=== PATIENT | female | born 1955 | race Two or more races ===

== ENCOUNTER 2017-02-18 12:07 | Inpatient (IN) | payer OTHER ==
[2017-02-18 14:17] VITALS: BMI 26.5
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
[2017-02-18] MEDS ORDERED: guaiFENesin/D-METHORPHAN HB 10 ML UNIT-DOSE CUPS PO PRN (16:23)
[2017-02-18] MEDS ORDERED: MAGNESIUM HYDROX 2400MG/30ML ORAL SUSPENSION 30 ML CUP PO PRN (16:23)
[2017-02-18] MEDS ORDERED: ACETAMINOPHEN 325 MG TABLET (FP) PO PRN (16:23)
[2017-02-18] MEDS ORDERED: hydrOXYzine PAMOATE 50 MG CAPSULE (FP) PO PRN (16:23)
[2017-02-18] MEDS ORDERED: NICOTINE POLACRILEX 4 MG GUM BC PRN (16:23)
[2017-02-18] MEDS ORDERED: LOPERAMIDE HCL 2 MG CAPSULE PO PRN (16:23)
[2017-02-18] MEDS ORDERED: IBUPROFEN 400 MG TABLET (FP) PO PRN (16:23)
[2017-02-18] MEDS ORDERED: MAG HYDROX/AL HYDROX/SIMETH 30 ML UNIT-DOSE CUP PO PRN (16:23)
[2017-02-18] MEDS ORDERED: MENTHOL/PHENOL 1 EACH UD MM PRN (16:23)
[2017-02-18] MEDS ORDERED: diphenhydrAMINE HCL 50 MG CAPSULE PO PRN (16:23)
[2017-02-18] MEDS ORDERED: MAGNESIUM CITRATE 300 ML BOTTLE PO PRN (16:23)
[2017-02-18] MEDS ORDERED: chlordiazePOXIDE HCL 25 MG CAPSULE PO PRN (16:23)
[2017-02-18] MEDS ORDERED: P-EPHED 60MG/TRIPROLIDI 2.5MG TABLET PO PRN (16:23)
[2017-02-18] MEDS ORDERED: ALBUTEROL SO4 6.7 GM HFA INHALER IH PRN (16:27)
[2017-02-18] MEDS ORDERED: chlordiazePOXIDE HCL 25 MG CAPSULE PO ONE (17:45)
[2017-02-18] MEDS: INSULIN (NOVOLOG) ASPART 100 UNITS/ML 10ML VIAL SQ SCH (17:58)
[2017-02-18] MEDS ORDERED: INSULIN (NOVOLOG) ASPART 100 UNITS/ML 10ML VIAL ONE (18:01)
[2017-02-18] MEDS: metFORMIN HCL 500 MG TABLET (FP) PO SCH (18:20)
[2017-02-18] MEDS: ATORVASTATIN CA 20 MG TABLET (FP) PO SCH (22:26)
[2017-02-18] MEDS: THIAMINE HCL 100 MG TABLET (FP) PO SCH (22:26)
[2017-02-18] MEDS: INSULIN DETEMIR 100 UNITS/ML MDV SQ SCH (22:26)
[2017-02-18] MEDS: chlordiazePOXIDE HCL 25 MG CAPSULE PO SCH (22:26)
[2017-02-19] MEDS: metFORMIN HCL 500 MG TABLET (FP) PO SCH ×2 (07:39→16:50)
[2017-02-19] MEDS: chlordiazePOXIDE HCL 25 MG CAPSULE PO SCH ×4 (07:39→22:52)
[2017-02-19] MEDS: sitaGLIPtin PHOSPHATE 100 MG TABLET (FP) PO SCH (07:39)
[2017-02-19] MEDS: INSULIN (NOVOLOG) ASPART 100 UNITS/ML 10ML VIAL SQ SCH ×3 (08:13→16:50)
[2017-02-19] MEDS ORDERED: INSULIN (NOVOLOG) ASPART 100 UNITS/ML 10ML VIAL ONE ×2 (08:22→12:16)
[2017-02-19 10:06] LABS: MCH 28.2 pg (25.7-33.7); MEAN CELL VOLUME 85.6 fl (80-96); PLATELET COUNT 211 K/MM3 (134-434); RDW 13.1 % (11.6-15.6); WHITE BLOOD COUNT 5.8 K/mm3 (4.0-10.0)
[2017-02-19 10:52] LABS: ALBUMIN 3.8 g/dl (3.4-5.0); BILIRUBIN,TOTAL 0.4 mg/dL (0.2-1.0); CALCIUM 9.3 mg/dL (8.5-10.1); COCKROFT - GAULT 49.4275; CREATININE 1.3 mg/dL (0.55-1.02); TOT PROT 7.7 g/dl (6.4-8.2)
[2017-02-19] MEDS: ENALAPRIL MALEATE 10 MG TABLET (FP) PO SCH ×2 (10:55→11:03)
[2017-02-19] MEDS: PRENATAL VITAMINS W/ FOLIC ACID TABLET (FP) PO SCH (10:55)
[2017-02-19] MEDS: NICOTINE 21 MG/24 HOURS TOPICAL PATCH TD SCH (11:00)
--- NOTE | 2017-02-19 14:45 | PN ---
S CIWA - CIWA Score Nausea/Vomitin Muscle Tremors: 4-Moderate,w/Arms Extend Anxiety: 3 Agitation: 2 Paroxysmal Sweats: 3 Orientation: 2-Disoriented Date<2 days Tacttile Disturbances: 3-Moderate Itch/Numb/Burn Auditory Disturbances: 0-None Visual Disturbances: 0-None Headache: 0-None Present CIWA-Ar Total Score: 19 BHS Progress Note (SOAP) Subjective: Interrupted sleep, Tremors,Fatigue, Body aches. Objective: PT. A & O X 2 (DISORIENTED ABOUT DAY/ DATE). 02/19/17 14:44 Vital Signs Temperature 98.1 F 02/19/17 14:14 Pulse Rate 85 02/19/17 14:14 Respiratory Rate 16 02/19/17 14:14 Blood Pressure 96/60 02/19/17 14:14 O2 Sat by Pulse Oximetry (%) Laboratory Last Values WBC 5.8 K/mm3 (4.0-10.0) 02/19/17 06:00 RBC 4.83 M/mm3 (3.60-5.2) 02/19/17 06:00 Hgb 13.6 GM/dL (10.7-15.3) 02/19/17 06:00 Hct 41.3 % (32.4-45.2) 02/19/17 06:00 MCV 85.6 fl (80-96) 02/19/17 06:00 MCHC 33.0 g/dl (32.0-36.0) 02/19/17 06:00 RDW 13.1 % (11.6-15.6) 02/19/17 06:00 Plt Count 211 K/MM3 (134-434) 02/19/17 06:00 MPV 11.0 fl (7.5-11.1) D 02/19/17 06:00 Sodium 138 mmol/L (136-145) 02/19/17 06:00 Potassium 4.6 mmol/L (3.5-5.1) D 02/19/17 06:00 Chloride 99 mmol/L (98-107) 02/19/17 06:00 Carbon Dioxide 28 mmol/L (21-32) 02/19/17 06:00 Anion Gap 11 (8-16) 02/19/17 06:00 BUN 22 mg/dL (7-18) H 02/19/17 06:00 Creatinine 1.3 mg/dL (0.55-1.02) H D 02/19/17 06:00 Creat Clearance w eGFR 41.78 (>60) 02/19/17 06:00 POC Glucometer 267 UNITS (()) 02/19/17 12:07 Random Glucose 294 mg/dL (74-106) H D 02/19/17 06:00 Calcium 9.3 mg/dL (8.5-10.1) 02/19/17 06:00 Total Bilirubin 0.4 mg/dL (0.2-1.0) D 02/19/17 06:00 AST 12 U/L (15-37) L 02/19/17 06:00 ALT 30 U/L (12-78) 02/19/17 06:00 Alkaline Phosphatase 186 U/L (45-117) H D 02/19/17 06:00 Total Protein 7.7 g/dl (6.4-8.2) 02/19/17 06:00 Albumin 3.8 g/dl (3.4-5.0) 02/19/17 06:00 LABS NOTED. Assessment: 02/19/17 14:45 WITHDRAWAL SYMPTOMS. Plan: CONTINUE DETOX. ADVISED PATIENT TO FOLLOW-UP WITH RECRUIT INSTRUCTOR / REHAB MEDICAL PROVIDER AFTER DISCHARGE FROM DETOX FOR GENERAL MEDICAL ASSESSMENT AND FOR ABNORMAL ADMISSION LAB VALUES.
--- NOTE | 2017-02-19 16:16 | EKG ---
Test Reason : Blood Pressure : / mmHG Vent. Rate : 088 BPM Atrial Rate : 088 BPM P-R Int : 162 ms QRS Dur : 088 ms QT Int : 342 ms P-R-T Axes : 039 037 029 degrees QTc Int : 413 ms NORMAL SINUS RHYTHM NORMAL ECG NO PREVIOUS ECGS AVAILABLE Confirmed by NIVIA GARCIA MD ([id number]) on 02/19/2017 4:16:18 PM Referred By: Gabo Ryder Confirmed By:NIVIA GARCIA MD
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
[2017-02-19] MEDS ORDERED: QUEtiapine FUMARATE 50 MG TABLET PO SCH (22:00)
[2017-02-19] MEDS: ATORVASTATIN CA 20 MG TABLET (FP) PO SCH (22:51)
[2017-02-19] MEDS: THIAMINE HCL 100 MG TABLET (FP) PO SCH (22:51)
[2017-02-19] MEDS: INSULIN DETEMIR 100 UNITS/ML MDV SQ SCH (22:52)
[2017-02-20] MEDS ORDERED: INSULIN (NOVOLOG) ASPART 100 UNITS/ML 10ML VIAL ONE ×2 (06:57→11:57)
[2017-02-20] MEDS: metFORMIN HCL 500 MG TABLET (FP) PO SCH (07:02)
[2017-02-20] MEDS: sitaGLIPtin PHOSPHATE 100 MG TABLET (FP) PO SCH (07:02)
[2017-02-20] MEDS: INSULIN (NOVOLOG) ASPART 100 UNITS/ML 10ML VIAL SQ SCH ×2 (07:03→11:59)
[2017-02-20] MEDS: chlordiazePOXIDE HCL 25 MG CAPSULE PO SCH ×2 (07:05→11:41)
[2017-02-20 10:48] VITALS: PULSE 94
[2017-02-20] MEDS: PRENATAL VITAMINS W/ FOLIC ACID TABLET (FP) PO SCH (11:41)
[2017-02-20] MEDS: NICOTINE 21 MG/24 HOURS TOPICAL PATCH TD SCH (11:41)
[2017-02-20] MEDS: ENALAPRIL MALEATE 10 MG TABLET (FP) PO SCH (11:42)
[2017-02-20 13:52] VITALS: BP 107/66; TEMP 98.2
--- NOTE | 2017-02-20 14:39 | PN ---
S CIWA - CIWA Score Nausea/Vomitin Muscle Tremors: 4-Moderate,w/Arms Extend Anxiety: 4-Mod. Anxious/Guarded Agitation: 2 Paroxysmal Sweats: No Perspiration Orientation: 0-Oriented Tacttile Disturbances: 1-Very Mild Itch/Numbness Auditory Disturbances: 0-None Visual Disturbances: 0-None Headache: 3-Moderate CIWA-Ar Total Score: 17 BHS Progress Note (SOAP) Subjective: Anxious, sweating, interrupted sleep, nausea Objective: 02/20/17 14:32 Last Vital Signs Temp Pulse Resp BP Pulse Ox 98.2 F 94 H 16 107/66 02/20/17 13:51 02/20/17 13:51 02/20/17 13:51 02/20/17 13:51 Laboratory Tests 02/18/17 02/19/17 02/19/17 21:35 06:00 06:00 WBC 5.8 RBC 4.83 Hgb 13.6 Hct 41.3 MCV 85.6 MCHC 33.0 RDW 13.1 Plt Count 211 MPV 11.0 D Sodium 138 Potassium 4.6 D Chloride 99 Carbon Dioxide 28 Anion Gap 11 BUN 22 H Creatinine 1.3 H D Creat Clearance w eGFR 41.78 POC Glucometer 246 Random Glucose 294 H D Calcium 9.3 Total Bilirubin 0.4 D AST 12 L ALT 30 Alkaline Phosphatase 186 H D Total Protein 7.7 Albumin 3.8 RPR Titer 02/19/17 02/19/17 02/19/17 06:00 07:22 12:07 WBC RBC Hgb Hct MCV MCHC RDW Plt Count MPV Sodium Potassium Chloride Carbon Dioxide Anion Gap BUN Creatinine Creat Clearance w eGFR POC Glucometer 349 267 Random Glucose Calcium Total Bilirubin AST ALT Alkaline Phosphatase Total Protein Albumin RPR Titer Nonreactive 02/19/17 02/19/17 02/20/17 16:25 22:56 06:30 WBC RBC Hgb Hct MCV MCHC RDW Plt Count MPV Sodium Potassium Chloride Carbon Dioxide Anion Gap BUN Creatinine Creat Clearance w eGFR POC Glucometer 236 401 208 Random Glucose Calcium Total Bilirubin AST ALT Alkaline Phosphatase Total Protein Albumin RPR Titer 02/20/17 11:53 WBC RBC Hgb Hct MCV MCHC RDW Plt Count MPV Sodium Potassium Chloride Carbon Dioxide Anion Gap BUN Creatinine Creat Clearance w eGFR POC Glucometer 182 Random Glucose Calcium Total Bilirubin AST ALT Alkaline Phosphatase Total Protein Albumin RPR Titer Labs noted: serum creatinine 1.3, GFR 41.78, BUN 22 Assessment: 02/20/17 14:34 Withdrawal symptoms Noted with RADHA secondary to dehydration Plan: Continue detox RADHA secondary to dehydration: encouraged to drink lots of water, provide water pitcher to patient, repeat BMP
--- NOTE | 2017-02-20 16:49 | DS ---
[facility] Detox Discharge Summary Admission Date: 02/18/17 Discharge Date: 02/20/17 - History Present History: Alcohol Dependence Pertinent Past History: Asthma HTN Anemia DMT2 - Physical Exam Results Vital Signs: Vital Signs Temperature 98.2 F 02/20/17 13:51 Pulse Rate 94 H 02/20/17 13:51 Respiratory Rate 16 02/20/17 13:51 Blood Pressure 107/66 02/20/17 13:51 O2 Sat by Pulse Oximetry (%) Pertinent Admission Physical Exam Findings: Withdrawal symptoms - Medication Discharge Medications: Ambulatory Orders Albuterol Sulfate [Ventolin -] 2 mg PO Q4H PRN 11/08/12 Esomeprazole Mag Trihydrate [Nexium] 40 mg PO DAILY 11/08/12 Insulin Glargine,Hum.rec.anlog [Lantus Solostar PEN -] 35 units SQ HS 11/08/12 Metformin HCl [Glucophage] 1,000 mg PO BID 11/08/12 Quetiapine Fumarate [Seroquel -] 100 mg PO HS 11/08/12 Sitagliptin Phosphate [Januvia] 100 mg PO DAILY 11/08/12 Enalapril Maleate [Vasotec -] 10 mg PO DAILY #0 tablet 03/16/13 Atorvastatin Ca [Lipitor] 20 mg PO HS 02/18/17 Zolpidem Tartrate [Ambien] 10 mg PO HS 02/18/17 - Diagnosis (1) Alcohol dependence with uncomplicated withdrawal Status: Acute (2) Cigarette nicotine dependence Status: Acute Qualifiers: Substance use status: uncomplicated Qualified Code(s): F17.210 - Nicotine dependence, cigarettes, uncomplicated (3) Asthma Status: Chronic (4) DM Diabetes mellitus type 2 Status: Chronic (5) Essential hypertension Status: Chronic - AMA Did Patient Leave Against Medical Advice: Yes
[2017-02-20] MEDS ORDERED: chlordiazePOXIDE 5 MG CAPSULE PO SCH (23:00)
[2017-02-21] MEDS ORDERED: chlordiazePOXIDE HCL 10 MG CAPSULE PO SCH (23:00)
== END 2017-02-20 15:38 | disposition left against medical advice (07) | DRG 770 ==
LOC: YASAS 12:07 → Y6N 16:41
PROVIDERS: ADMIT Internal Medicine; ATTEND Internal Medicine
PROC: HZ2ZZZZ Detoxification Services for Substance Abuse Treatment (ICD-10-PCS; principal; 2017-02-20)
DX: F10.230 Alcohol dependence with withdrawal, uncomplicated (principal); F14.20 Cocaine dependence, uncomplicated; F17.210 Nicotine dependence, cigarettes, uncomplicated; F19.24 Other psychoactive substance dependence with psychoactive substance-induced mood disorder; I10 Essential (primary) hypertension; E11.9 Type 2 diabetes mellitus without complications; Z79.84 Long term (current) use of oral hypoglycemic drugs; J45.909 Unspecified asthma, uncomplicated; K21.9 Gastro-esophageal reflux disease without esophagitis; G47.00 Insomnia, unspecified; R01.1 Cardiac murmur, unspecified
CPT/HCPCS: 36415; 80053; 85027; 86593; 93005; 93010

== ENCOUNTER 2018-05-15 17:11 | Inpatient (IN) | payer OTHER ==
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
[2018-05-15] MEDS ORDERED: MELATONIN 5 MG TABLETS PO PRN (22:00)
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
[2018-05-15] MEDS ORDERED: ALBUTEROL SO4 2 MG TABLET PO PRN (22:20)
[2018-05-15] MEDS ORDERED: MAGNESIUM HYDROX 2400MG/30ML ORAL SUSPENSION 30 ML CUP PO PRN (22:21)
[2018-05-15] MEDS ORDERED: ACETAMINOPHEN 325 MG TABLET (FP) PO PRN (22:21)
[2018-05-15] MEDS ORDERED: guaiFENesin/D-METHORPHAN HB 10 ML UNIT-DOSE CUPS PO PRN (22:21)
[2018-05-15] MEDS ORDERED: MAG HYDROX/AL HYDROX/SIMETH 30 ML UNIT-DOSE CUP PO PRN (22:21)
[2018-05-15] MEDS ORDERED: MAGNESIUM CITRATE 300 ML BOTTLE PO PRN (22:21)
[2018-05-15] MEDS ORDERED: P-EPHED 60MG/TRIPROLIDI 2.5MG TABLET PO PRN (22:21)
[2018-05-15] MEDS ORDERED: hydrOXYzine PAMOATE 50 MG CAPSULE (FP) PO PRN (22:21)
[2018-05-15] MEDS ORDERED: IBUPROFEN 400 MG TABLET (FP) PO PRN (22:21)
[2018-05-15] MEDS ORDERED: LOPERAMIDE HCL 2 MG CAPSULE PO PRN (22:21)
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
[2018-05-16] MEDS: ENALAPRIL MALEATE 10 MG TABLET (FP) PO SCH (10:20)
[2018-05-16] MEDS: NICOTINE 21 MG/24 HOURS TOPICAL PATCH TD SCH (10:21)
[2018-05-16] MEDS: sitaGLIPtin PHOSPHATE 50 MG TABLET PO SCH (10:21)
[2018-05-16 10:27] LABS: HEMATOCRIT 35.9 % (32.4-45.2); HEMOGLOBIN 11.9 GM/dL (10.7-15.3); MCH 28.2 pg (25.7-33.7); MCHC 33.2 g/dl (32.0-36.0); MEAN CELL VOLUME 84.8 fl (80-96); MEAN PLT VOLUME 9.6 fl (7.5-11.1); PLATELET COUNT 210 K/MM3 (134-434); RBC 4.24 M/mm3 (3.60-5.2); RDW 13.6 % (11.6-15.6); WHITE BLOOD COUNT 5.1 K/mm3 (4.0-10.0)
[2018-05-16 10:36] LABS: CHLORIDE 103 mmol/L (98-107); POTASSIUM 4.2 mmol/L (3.5-5.1); SODIUM 136 mmol/L (136-145)
[2018-05-16 10:48] LABS: ALBUMIN 3.4 g/dl (3.4-5.0); ALK PHOS 126 U/L (45-117); ANION GAP 9 (8-16); BILIRUBIN,TOTAL 0.3 mg/dL (0.2-1.0); BLOOD UREA NITROGEN 33 mg/dL (7-18); CALCIUM 8.6 mg/dL (8.5-10.1); CO2 24 mmol/L (21-32); CREATININE 1.5 mg/dL (0.55-1.02); SGOT/AST 13 U/L (15-37); SGPT/ALT 20 U/L (12-78); TOT PROT 7.1 g/dl (6.4-8.2)
[2018-05-16] MEDS: PRENATAL VITAMINS W/ FOLIC ACID TABLET (FP) PO SCH (11:20)
[2018-05-16] MEDS: NICOTINE POLACRILEX 4 MG GUM BC PRN ×3 (11:45→21:49)
[2018-05-16 12:57] LABS: GLUCOSE,RANDOM 310 mg/dL (74-106)
--- NOTE | 2018-05-16 13:09 | EKG ---
Test Reason : Blood Pressure : / mmHG Vent. Rate : 085 BPM Atrial Rate : 085 BPM P-R Int : 164 ms QRS Dur : 104 ms QT Int : 368 ms P-R-T Axes : 044 028 049 degrees QTc Int : 437 ms NORMAL SINUS RHYTHM POSSIBLE LEFT ATRIAL ENLARGEMENT BORDERLINE ECG WHEN COMPARED WITH ECG OF 18-FEB-2017 16:44, NO SIGNIFICANT CHANGE WAS FOUND Confirmed by MD MIR, CHARLIE ([id number]) on 05/16/2018 1:09:21 PM Referred By: Confirmed By:CHARLIE HESTER MD
--- NOTE | 2018-05-16 14:08 | PN ---
[facility] Progress Note Note: Patient was approached twice for interview and declined. The counselor spinning supervisor asked her to see procedure writer as well with same result. She said:" I don't feel well. I'm withdrawing. I came for detox and I was admitted here."
--- NOTE | 2018-05-16 15:04 | PN ---
[facility] Progress Note Note: Vital Signs Temperature 98.1 F 05/16/18 09:00 Pulse Rate 87 05/16/18 09:00 Respiratory Rate 16 05/16/18 09:00 Blood Pressure 132/70 05/16/18 09:00 O2 Sat by Pulse Oximetry (%) Laboratory Last Values WBC 5.1 K/mm3 (4.0-10.0) 05/15/18 07:26 RBC 4.24 M/mm3 (3.60-5.2) 05/15/18 07:26 Hgb 11.9 GM/dL (10.7-15.3) 05/15/18 07:26 Hct 35.9 % (32.4-45.2) 05/15/18 07:26 MCV 84.8 fl (80-96) 05/15/18 07:26 MCH 28.2 pg (25.7-33.7) 05/15/18 07:26 MCHC 33.2 g/dl (32.0-36.0) 05/15/18 07:26 RDW 13.6 % (11.6-15.6) 05/15/18 07:26 Plt Count 210 K/MM3 (134-434) 05/15/18 07:26 MPV 9.6 fl (7.5-11.1) D 05/15/18 07:26 Sodium 136 mmol/L (136-145) 05/15/18 07:26 Potassium 4.2 mmol/L (3.5-5.1) 05/15/18 07:26 Chloride 103 mmol/L (98-107) 05/15/18 07:26 Carbon Dioxide 24 mmol/L (21-32) 05/15/18 07:26 Anion Gap 9 (8-16) 05/15/18 07:26 BUN 33 mg/dL (7-18) H 05/15/18 07:26 Creatinine 1.5 mg/dL (0.55-1.02) H 05/15/18 07:26 Creat Clearance w eGFR 35.30 (>60) 05/15/18 07:26 POC Glucometer 316 UNITS (80-120) 05/16/18 06:10 Random Glucose 310 mg/dL (74-106) H* 05/15/18 07:26 Calcium 8.6 mg/dL (8.5-10.1) 05/15/18 07:26 Total Bilirubin 0.3 mg/dL (0.2-1.0) 05/15/18 07: AST 13 U/L (15-37) L 05/15/18 07: ALT 20 U/L (12-78) 05/15/18 07: Alkaline Phosphatase 126 U/L (45-117) H 05/15/18 07: Total Protein 7.1 g/dl (6.4-8.2) 05/15/18 07: Albumin 3.4 g/dl (3.4-5.0) 05/15/18 07:26 RPR Titer Nonreactive (NONREACTIVE) 05/15/18 07:26 Patient reports diarrhea and not feeling well. Patient very irritable. Patient AOX3 no distress no tremors, negative neuro symptoms Full ROM vitals stable BGM elevated patient in sliding scale case reviewed with Dr. Drake Plan: Patient refuse immodium for diarrhea, requested bepto bismol reports helps with diarrhea, medication ordered as patient request Increase fluids as tolerated Continue to monitor
[2018-05-16] MEDS: CYCLOBENZAPRINE HCL 5 MG TABLET PO SCH ×2 (17:40→23:29)
[2018-05-16] MEDS: BISMUTH SUBSALICYLATE 262 MG/15 ML BTL PO SCH (17:40)
[2018-05-16] MEDS: INSULIN SLIDING SCALE (NOVOLOG) 1 VIAL SQ SCH ×2 (17:40→20:55)
[2018-05-16] MEDS ORDERED: INSULIN (NOVOLOG) ASPART 100 UNITS/ML 10ML VIAL ONE (20:54)
[2018-05-16] MEDS: INSULIN (LEVEMIR) 100 UNITS/ML UNITS SQ SCH (23:29)
[2018-05-16] MEDS: ATORVASTATIN CA 20 MG TABLET (FP) PO SCH (23:30)
[2018-05-16] MEDS: THIAMINE HCL 100 MG TABLET (FP) PO SCH (23:30)
[2018-05-17] MEDS: CYCLOBENZAPRINE HCL 5 MG TABLET PO SCH ×3 (06:17→21:03)
[2018-05-17] MEDS: INSULIN SLIDING SCALE (NOVOLOG) 1 VIAL SQ SCH ×3 (07:30→21:57)
[2018-05-17] MEDS: sitaGLIPtin PHOSPHATE 50 MG TABLET PO SCH (08:05)
[2018-05-17] MEDS: ENALAPRIL MALEATE 10 MG TABLET (FP) PO SCH (09:48)
[2018-05-17] MEDS: PRENATAL VITAMINS W/ FOLIC ACID TABLET (FP) PO SCH (09:48)
[2018-05-17] MEDS: NICOTINE 21 MG/24 HOURS TOPICAL PATCH TD SCH (09:48)
[2018-05-17] MEDS: BISMUTH SUBSALICYLATE 262 MG/15 ML BTL PO SCH (09:49)
[2018-05-17] MEDS: NICOTINE POLACRILEX 4 MG GUM BC PRN ×3 (09:51→16:59)
[2018-05-17] MEDS: ALBUTEROL SO4 8 GM HFA INHALER IH PRN (19:53)
[2018-05-17] MEDS ORDERED: ALBUTEROL SO4 2.5/IPRATROPIUM 0.5 INH SOL 3 ML VIAL.NEB. NEB PRN (19:59)
[2018-05-17] MEDS: THIAMINE HCL 100 MG TABLET (FP) PO SCH (21:03)
[2018-05-17] MEDS: ATORVASTATIN CA 20 MG TABLET (FP) PO SCH (21:03)
[2018-05-17] MEDS: INSULIN (LEVEMIR) 100 UNITS/ML UNITS SQ SCH (21:03)
[2018-05-17] MEDS: QUEtiapine FUMARATE 100 MG TABLET (FP) PO SCH (21:07)
[2018-05-17] MEDS: traZODone HCL 50 MG TABLET (FP) PO SCH (21:07)
--- NOTE | 2018-05-17 21:24 | PN ---
[facility] Progress Note Note: Called because patient's blood glucose was 425. Patient is alert and oriented. Will order HS insulin sliding scale coverage. Laboratory Tests 05/15/18 05/15/18 05/15/18 07:26 07:26 07:26 WBC 5.1 RBC 4.24 Hgb 11.9 Hct 35.9 MCV 84.8 MCH 28.2 MCHC 33.2 RDW 13.6 Plt Count 210 MPV 9.6 D Sodium 136 Potassium 4.2 Chloride 103 Carbon Dioxide 24 Anion Gap 9 BUN 33 H Creatinine 1.5 H Creat Clearance w eGFR 35.30 POC Glucometer Random Glucose 310 H* Calcium 8.6 Total Bilirubin 0.3 AST 13 L ALT 20 Alkaline Phosphatase 126 H Total Protein 7.1 Albumin 3.4 RPR Titer Nonreactive 05/16/18 05/16/18 05/16/18 06:10 20:49 22:29 POC Glucometer 316 428 189 Random Glucose Calcium Total Bilirubin AST ALT Alkaline Phosphatase Total Protein Albumin RPR Titer 05/17/18 05/17/18 05/17/18 POC Glucometer 126 357 424 Random Glucose Calcium Total Bilirubin AST ALT Alkaline Phosphatase Total Protein Albumin RPR Titer Vital Signs - 24 hr 05/17/18 05/17/18 05/17/18 00:30 03:30 06:47 Temperature 97.9 F Pulse Rate 86 Respiratory 18 18 18 Rate Blood Pressure 118/64 Continue BGM.
--- NOTE | 2018-05-17 22:17 | PN ---
[facility] Progress Note Note: history of asthma Vital Signs Temperature 97.9 F 05/17/18 06:47 Pulse Rate 86 05/17/18 06:47 Respiratory Rate 18 05/17/18 06:47 Blood Pressure 118/64 05/17/18 06:47 O2 Sat by Pulse Oximetry (%) responded to albuterol inhaler also duoneb nebulizer treatment bgm monitoring with insulin coverage close monitoring
[2018-05-18] MEDS: CYCLOBENZAPRINE HCL 5 MG TABLET PO SCH ×3 (06:33→21:15)
[2018-05-18] MEDS: MENTHOL/PHENOL 1 EACH UD MM PRN ×2 (06:34→09:59)
[2018-05-18] MEDS: INSULIN SLIDING SCALE (NOVOLOG) 1 VIAL SQ SCH ×3 (06:36→21:16)
[2018-05-18] MEDS: sitaGLIPtin PHOSPHATE 50 MG TABLET PO SCH (07:43)
[2018-05-18 07:54] LABS: URINE APPEARANCE CLOUDY; URINE BILIRUBIN NEGATIVE (<2.0 mg/dL); URINE COLOR AMBER; URINE GLUCOSE (UA) 3+ (NEGATIVE); URINE KETONE TRACE (NEGATIVE); URINE NITRITE NEGATIVE (NEGATIVE)
[2018-05-18 07:58] LABS: URINE LEUK ESTERASE 2+ (NEGATIVE); URINE PROTEIN 1+ (NEGATIVE)
[2018-05-18 08:00] LABS: EPI CELLS MODERATE /HPF (FEW); URINE BACTERIA MANY /hpf (NONE SEEN); URINE MUCUS RARE; YEAST MANY
[2018-05-18] MEDS: BISMUTH SUBSALICYLATE 262 MG/15 ML BTL PO SCH (09:54)
[2018-05-18] MEDS: NICOTINE 21 MG/24 HOURS TOPICAL PATCH TD SCH (09:54)
[2018-05-18] MEDS: PRENATAL VITAMINS W/ FOLIC ACID TABLET (FP) PO SCH (09:55)
[2018-05-18] MEDS: ENALAPRIL MALEATE 10 MG TABLET (FP) PO SCH (09:55)
--- NOTE | 2018-05-18 13:54 | HP ---
Psychiatrist Admission - Data Date of interview: 05/18/18 Admission source: [facility] Identifying data: Patient is a 62 year old single female, mother of seven, unemployed, homeless, and supported by [facility]. This is patient's first admission to rehab at [facility]. Pt. admitted to [facility] rehab for alcohol and cocaine dependence. Medical History: Anemia, hypertension, asthma, hypercholesterolemia, diabetes Psychiatric History: Patient's first psychiatric contact was in the at [facility] rehab in which patient reports being diagnosed with depression and was started on paxil and seroquel. Pt. accepted paxil for approximately 6 months but reported feeling worst due to increase in depression and eventually discontinued the use of paxil. Approximately 6-12 months later patient was started on trazodone by her outpatient provider and continued to accept seroquel. Pt. reports one psychiatric hospitalization at [facility] many years ago but is unable to recall why she was admitted to the psychiatric unit. Patient's outpatient care is provided at the [facility] [place]. Pt. is currently prescribed seroquel 100mg + trazodone 50mg. Pt. denies h/o suicide attempt. Pt currently denies suicidal and homicidial ideation. Physical/Sexual Abuse/Trauma History: Denies. Vital Signs: Vital Signs - 24 hr 05/18/18 05/18/18 05/18/18 00:30 06:43 10:00 Temperature 98.4 F Pulse Rate 99 H 96 H Respiratory 18 18 18 Rate Blood Pressure 95/57 133/73 Allergies/Adverse Reactions: Allergies Allergy/AdvReac Type Severity Reaction Status Date / Time ampicillin [Ampicillin] Allergy Severe Hives Verified 05/15/18 21:38 fish derived Allergy Severe Swelling Verified 05/15/18 21:38 shellfish derived Allergy Severe Swelling Verified 05/15/18 21:38 tomato AdvReac Mild ACID REFLUX Verified 05/15/18 21:38 seafood Allergy Severe Swelling Uncoded 05/15/18 21:38 tomatoes AdvReac Mild acid reflux Uncoded 05/15/18 21:38 Date of last physical exam: 05/15/18 Concur with the findings of this exam: Yes - Substance Abuse/Tx History Hx Alcohol Use: Yes (2 liters of day of liquor) Hx Substance Use: Yes (crack- $150-200 per day) Substance Use Type: Cocaine Hx Substance Use Treatment: Yes ([facility] in 02/2018) Mental Status Exam - Mental Status Exam Alert and Oriented to: Time, Place, Person Cognitive Function: Good Patient Appearance: Well Groomed Mood: Hopeful Affect: Mood Congruent Patient Behavior: Appropriate, Cooperative Speech Pattern: Clear, Appropriate Voice Loudness: Normal Thought Process: Intact, Goal Oriented Thought Disorder: Not Present Hallucinations: Denies Suicidal Ideation: Denies Homicidal Ideation: Denies Insight/Judgement: Poor Sleep: Fair Appetite: Good Muscle strength/Tone: Normal Gait/Station: Normal Psychiatric Findings - Problem List ([place] 1, 2,3) (1) Alcohol dependence Current Visit: Yes Status: Acute (2) Asthma Current Visit: Yes Status: Chronic (3) DM Diabetes mellitus type 2 Current Visit: Yes Status: Chronic (4) Essential hypertension Current Visit: Yes Status: Chronic (5) Cocaine dependence Current Visit: Yes Status: Chronic (6) Insomnia Current Visit: Yes Status: Acute (7) Substance induced mood disorder Current Visit: Yes Status: Acute (8) Mood disorder Current Visit: Yes Status: Suspected (9) Cigarette nicotine dependence Current Visit: Yes Status: Acute Qualifiers: Substance use status: uncomplicated Qualified Code(s): F17.210 - Nicotine dependence, cigarettes, uncomplicated (10) Gastroesophageal reflux disease Current Visit: Yes Status: Chronic - Initial Treatment Plan Initial Treatment Plan: Psychoeducation provided. Detoxification in progress. Seroquel 100mg + Trazodone 50mg ordered by Dr. Rico Valentine to continue current medication regime.
[2018-05-18] MEDS: NICOTINE POLACRILEX 4 MG GUM BC PRN ×2 (14:43→19:23)
--- NOTE | 2018-05-18 15:38 | PN ---
[facility] Progress Note Note: Vital Signs Temperature 98.4 F 05/18/18 06:43 Pulse Rate 96 H 05/18/18 10:00 Respiratory Rate 18 05/18/18 10:00 Blood Pressure 133/73 05/18/18 10:00 O2 Sat by Pulse Oximetry (%) Laboratory Last Values WBC 5.1 K/mm3 (4.0-10.0) 05/15/18 07:26 RBC 4.24 M/mm3 (3.60-5.2) 05/15/18 07:26 Hgb 11.9 GM/dL (10.7-15.3) 05/15/18 07:26 Hct 35.9 % (32.4-45.2) 05/15/18 07:26 MCV 84.8 fl (80-96) 05/15/18 07:26 MCH 28.2 pg (25.7-33.7) 05/15/18 07:26 MCHC 33.2 g/dl (32.0-36.0) 05/15/18 07:26 RDW 13.6 % (11.6-15.6) 05/15/18 07:26 Plt Count 210 K/MM3 (134-434) 05/15/18 07:26 MPV 9.6 fl (7.5-11.1) D 05/15/18 07:26 Sodium 136 mmol/L (136-145) 05/15/18 07:26 Potassium 4.2 mmol/L (3.5-5.1) 05/15/18 07:26 Chloride 103 mmol/L (98-107) 05/15/18 07:26 Carbon Dioxide 24 mmol/L (21-32) 05/15/18 07:26 Anion Gap 9 (8-16) 05/15/18 07:26 BUN 33 mg/dL (7-18) H 05/15/18 07:26 Creatinine 1.5 mg/dL (0.55-1.02) H 05/15/18 07:26 Creat Clearance w eGFR 35.30 (>60) 05/15/18 07:26 POC Glucometer 233 UNITS (80-120) 05/18/18 06:32 Random Glucose 310 mg/dL (74-106) H* 05/15/18 07:26 Calcium 8.6 mg/dL (8.5-10.1) 05/15/18 07:26 Total Bilirubin 0.3 mg/dL (0.2-1.0) 05/15/18 07:26 AST 13 U/L (15-37) L 05/15/18 07:26 ALT 20 U/L (12-78) 05/15/18 07:26 Alkaline Phosphatase 126 U/L (45-117) H 05/15/18 07:26 Total Protein 7.1 g/dl (6.4-8.2) 05/15/18 07:26 Albumin 3.4 g/dl (3.4-5.0) 05/15/18 07:26 Urine Color Patricia 05/17/18 08:15 Urine Appearance Cloudy 05/17/18 08:15 Urine pH 5.0 (5.0-8.0) 05/17/18 08:15 Ur Specific [place] 1.018 (1.001-1.035) 05/17/18 08:15 Urine Protein 1+ (NEGATIVE) H 05/17/18 08:15 Urine Glucose (UA) 3+ (NEGATIVE) H 05/17/18 08:15 Urine Ketones Trace (NEGATIVE) H 05/17/18 08:15 Urine Blood Negative (NEGATIVE) 05/17/18 08:15 Urine Nitrite Negative (NEGATIVE) 05/17/18 08:15 Urine Bilirubin Negative (<2.0 mg/dL) 05/17/18 08:15 Urine Urobilinogen 2.0 mg/dL (0.2-1.0) H 05/17/18 08:15 Ur Leukocyte Esterase 2+ (NEGATIVE) H 05/17/18 08:15 Urine WBC (Auto) 86 /hpf (3-5) 05/17/18 08:15 Urine RBC (Auto) 2 /hpf (0-3) 05/17/18 08:15 Ur Epithelial Cells Moderate /HPF (FEW) 05/17/18 08:15 Urine Bacteria Many /hpf (NONE SEEN) 05/17/18 08:15 Urine Mucus Rare 05/17/18 08:15 Urine Yeast Many 05/17/18 08:15 RPR Titer Nonreactive (NONREACTIVE) 05/15/18 07:26 Patient stable. medications reviewed d/c magnesium containing products januvia decrease to 50 mg repeat u/a and urine culture repeat CMP in AM continue to monitor
[2018-05-18] MEDS ORDERED: INSULIN (NOVOLOG) ASPART 100 UNITS/ML 10ML VIAL ONE ×2 (16:59→21:01)
[2018-05-18] MEDS ORDERED: PT OWN MED DRAWER 7, Y5N ONE ×2 (19:21→21:03)
[2018-05-18 20:59] LABS: URINE APPEARANCE SLCLOUDY; URINE BILIRUBIN NEGATIVE (<2.0 mg/dL); URINE COLOR LTYELLOW; URINE GLUCOSE (UA) 3+ (NEGATIVE); URINE KETONE NEGATIVE (NEGATIVE); URINE LEUK ESTERASE TRACE (NEGATIVE); URINE NITRITE NEGATIVE (NEGATIVE); URINE PROTEIN NEGATIVE (NEGATIVE); URINE UROBILINOGEN NEGATIVE mg/dL (0.2-1.0)
[2018-05-18 21:07] LABS: EPI CELLS FEW /HPF (FEW); URINE BACTERIA RARE /hpf (NONE SEEN)
[2018-05-18] MEDS: traZODone HCL 50 MG TABLET (FP) PO SCH (21:14)
[2018-05-18] MEDS: ATORVASTATIN CA 20 MG TABLET (FP) PO SCH (21:15)
[2018-05-18] MEDS: THIAMINE HCL 100 MG TABLET (FP) PO SCH (21:15)
[2018-05-18] MEDS: CHLORHEXIDINE GLUCONATE 118 ML MOUTHWASH MM SCH (22:07)
[2018-05-18] MEDS: INSULIN (LEVEMIR) 100 UNITS/ML UNITS SQ SCH (22:08)
[2018-05-18] MEDS: QUEtiapine FUMARATE 100 MG TABLET (FP) PO SCH (22:08)
[2018-05-19] MEDS ORDERED: PT OWN MED DRAWER 7, Y5N ONE ×2 (03:46→08:58)
[2018-05-19] MEDS: sitaGLIPtin PHOSPHATE 50 MG TABLET PO SCH (07:10)
[2018-05-19] MEDS: INSULIN SLIDING SCALE (NOVOLOG) 1 VIAL SQ SCH ×3 (07:10→21:25)
[2018-05-19] MEDS: CYCLOBENZAPRINE HCL 5 MG TABLET PO SCH ×3 (07:10→21:21)
[2018-05-19] MEDS: BISMUTH SUBSALICYLATE 262 MG/15 ML BTL PO SCH (10:00)
[2018-05-19] MEDS: CHLORHEXIDINE GLUCONATE 118 ML MOUTHWASH MM SCH ×2 (10:00→21:26)
[2018-05-19] MEDS: NICOTINE 21 MG/24 HOURS TOPICAL PATCH TD SCH (10:01)
[2018-05-19] MEDS: PRENATAL VITAMINS W/ FOLIC ACID TABLET (FP) PO SCH (10:11)
[2018-05-19] MEDS: ENALAPRIL MALEATE 10 MG TABLET (FP) PO SCH (10:11)
[2018-05-19] MEDS: NICOTINE POLACRILEX 4 MG GUM BC PRN ×2 (10:28→16:09)
[2018-05-19 11:23] LABS: CHLORIDE 107 mmol/L (98-107); POTASSIUM 4.6 mmol/L (3.5-5.1); SODIUM 139 mmol/L (136-145)
[2018-05-19 12:00] LABS: ALBUMIN 2.9 g/dl (3.4-5.0); ALK PHOS 174 U/L (45-117); ANION GAP 7 (8-16); BILIRUBIN,TOTAL 0.3 mg/dL (0.2-1.0); BLOOD UREA NITROGEN 27 mg/dL (7-18); CALCIUM 8.6 mg/dL (8.5-10.1); CO2 25 mmol/L (21-32); CREATININE 0.9 mg/dL (0.55-1.02); SGOT/AST 17 U/L (15-37); SGPT/ALT 22 U/L (12-78); TOT PROT 6.1 g/dl (6.4-8.2)
[2018-05-19 12:44] LABS: GLUCOSE,RANDOM 332 mg/dL (74-106)
[2018-05-19] MEDS: ALBUTEROL SO4 8 GM HFA INHALER IH PRN (18:40)
[2018-05-19] MEDS: ATORVASTATIN CA 20 MG TABLET (FP) PO SCH (21:22)
[2018-05-19] MEDS: QUEtiapine FUMARATE 100 MG TABLET (FP) PO SCH (21:22)
[2018-05-19] MEDS: traZODone HCL 50 MG TABLET (FP) PO SCH (21:22)
[2018-05-19] MEDS: INSULIN (LEVEMIR) 100 UNITS/ML UNITS SQ SCH (21:26)
[2018-05-19] MEDS: THIAMINE HCL 100 MG TABLET (FP) PO SCH (21:26)
[2018-05-20] MEDS: CYCLOBENZAPRINE HCL 5 MG TABLET PO SCH ×3 (07:07→21:04)
[2018-05-20] MEDS: sitaGLIPtin PHOSPHATE 50 MG TABLET PO SCH (07:07)
[2018-05-20] MEDS: INSULIN SLIDING SCALE (NOVOLOG) 1 VIAL SQ SCH ×3 (07:07→21:06)
[2018-05-20] MEDS: ENALAPRIL MALEATE 10 MG TABLET (FP) PO SCH (09:56)
[2018-05-20] MEDS: PRENATAL VITAMINS W/ FOLIC ACID TABLET (FP) PO SCH (09:56)
[2018-05-20] MEDS: NICOTINE 21 MG/24 HOURS TOPICAL PATCH TD SCH (09:57)
[2018-05-20] MEDS: CHLORHEXIDINE GLUCONATE 118 ML MOUTHWASH MM SCH ×2 (09:57→22:22)
[2018-05-20] MEDS: BISMUTH SUBSALICYLATE 262 MG/15 ML BTL PO SCH (09:57)
[2018-05-20] MEDS: NICOTINE POLACRILEX 4 MG GUM BC PRN ×3 (09:58→17:43)
[2018-05-20] MEDS: THIAMINE HCL 100 MG TABLET (FP) PO SCH (21:04)
[2018-05-20] MEDS: QUEtiapine FUMARATE 100 MG TABLET (FP) PO SCH (21:04)
[2018-05-20] MEDS: traZODone HCL 50 MG TABLET (FP) PO SCH (21:04)
[2018-05-20] MEDS: ATORVASTATIN CA 20 MG TABLET (FP) PO SCH (21:04)
[2018-05-20] MEDS: INSULIN (LEVEMIR) 100 UNITS/ML UNITS SQ SCH (21:05)
[2018-05-20] MEDS ORDERED: PT OWN MED DRAWER 7, Y5N ONE (22:22)
[2018-05-21] MEDS: CYCLOBENZAPRINE HCL 5 MG TABLET PO SCH ×3 (06:00→21:06)
[2018-05-21 07:03] VITALS: TEMP 98.4
[2018-05-21] MEDS: sitaGLIPtin PHOSPHATE 50 MG TABLET PO SCH (07:06)
[2018-05-21] MEDS: INSULIN SLIDING SCALE (NOVOLOG) 1 VIAL SQ SCH ×5 (07:07→21:05)
[2018-05-21] MEDS: ENALAPRIL MALEATE 10 MG TABLET (FP) PO SCH (09:58)
[2018-05-21] MEDS: CHLORHEXIDINE GLUCONATE 118 ML MOUTHWASH MM SCH ×2 (09:58→21:07)
[2018-05-21] MEDS: PRENATAL VITAMINS W/ FOLIC ACID TABLET (FP) PO SCH (09:58)
[2018-05-21] MEDS: NICOTINE 21 MG/24 HOURS TOPICAL PATCH TD SCH (09:59)
[2018-05-21] MEDS: BISMUTH SUBSALICYLATE 262 MG/15 ML BTL PO SCH (09:59)
[2018-05-21] MEDS: ALBUTEROL SO4 8 GM HFA INHALER IH PRN (15:13)
[2018-05-21] MEDS: NICOTINE POLACRILEX 4 MG GUM BC PRN ×2 (17:52→21:36)
[2018-05-21] MEDS: INSULIN (LEVEMIR) 100 UNITS/ML UNITS SQ SCH (21:06)
[2018-05-21] MEDS: ATORVASTATIN CA 20 MG TABLET (FP) PO SCH (21:06)
[2018-05-21] MEDS: QUEtiapine FUMARATE 100 MG TABLET (FP) PO SCH (21:06)
[2018-05-21] MEDS: traZODone HCL 50 MG TABLET (FP) PO SCH (21:06)
[2018-05-21] MEDS: THIAMINE HCL 100 MG TABLET (FP) PO SCH (21:06)
[2018-05-22] MEDS: sitaGLIPtin PHOSPHATE 50 MG TABLET PO SCH (07:40)
[2018-05-22] MEDS: CYCLOBENZAPRINE HCL 5 MG TABLET PO SCH (07:40)
[2018-05-22] MEDS: INSULIN SLIDING SCALE (NOVOLOG) 1 VIAL SQ SCH ×2 (07:40→11:32)
[2018-05-22] MEDS: BISMUTH SUBSALICYLATE 262 MG/15 ML BTL PO SCH (09:59)
[2018-05-22] MEDS: NICOTINE 21 MG/24 HOURS TOPICAL PATCH TD SCH (09:59)
[2018-05-22] MEDS: ENALAPRIL MALEATE 10 MG TABLET (FP) PO SCH (09:59)
[2018-05-22] MEDS: PRENATAL VITAMINS W/ FOLIC ACID TABLET (FP) PO SCH (09:59)
[2018-05-22 11:28] VITALS: BP 158/86; PULSE 104
[2018-05-22] MEDS: NICOTINE POLACRILEX 4 MG GUM BC PRN (11:44)
[2018-05-22] MEDS ORDERED: PT OWN MED DRAWER 7, Y5N ONE (14:10)
--- NOTE | 2018-05-22 14:36 | PN ---
Psychiatric Progress Note Vital Signs: Vital Signs Period Temp Pulse Resp BP Sys/Rock Pulse Ox Last 24 Hr 104 18-18 158/86 Date of Session: 05/22/18 Chief Complaint:: Discharge Note HPI: Patient addressing Alcohol and Cocaine Dependence comorbid with NicotineDependence, Substance-Induced Mood Disorder and Substance-Induced Sleep Disorder ROS: Asthma, HTN, DM, GERD Current Medications: Active Medications Generic Name Dose Route Start Last Admin Trade Name Freq PRN Reason Stop Dose Admin Acetaminophen 650 mg 05/15/18 22:21 05/18/18 09:57 Tylenol - PO 650 mg Q4H PRN Administration FEVER Albuterol Sulfate 2 puff 05/17/18 19:50 05/21/18 15:13 Ventolin Hfa Inhaler - IH 2 puff Q4H PRN Administration SHORTNESS OF BREATH Albuterol/Ipratropium 1 amp 05/22/18 19:59 Duoneb - NEB 05/29/18 19:58 Q6H PRN SHORTNESS OF BREATH Atorvastatin Calcium 20 mg 05/16/18 22:00 05/21/18 21:06 Lipitor - PO 20 mg HS KARLI Administration Bismuth Subsalicylate 30 ml 05/16/18 14:30 05/22/18 09:59 Pepto-Bismol Liquid - PO Not Given DAILY KARLI Cyclobenzaprine HCl 5 mg 05/16/18 15:15 05/22/18 07:40 Cyclobenzaprine Hcl PO Not Given TID KARLI Enalapril Maleate 40 mg 05/16/18 10:00 05/22/18 09:59 Vasotec - PO 40 mg DAILY KARLI Administration Eucalyptus/Menthol/Phenol/Sorbitol 1 each 05/15/18 22:21 05/18/18 09:59 Cepastat Lozenge - MM 1 each Q4H PRN Administration SORE THROAT Guaifenesin 10 ml 05/15/18 22:21 Robitussin Dm - PO Q6H PRN COUGH Hydroxyzine Pamoate 50 mg 05/15/18 22:21 Vistaril - PO Q4H PRN AGITATION Ibuprofen 400 mg 05/15/18 22:21 Motrin - PO Q6H PRN Pain level 4-6 Insulin Aspart 1 vial 05/21/18 07:00 05/22/18 11:32 Novolog Vial Sliding Scale - SQ 4 units ACHS KARLI Administration Protocol Insulin Detemir 30 units 05/16/18 22:00 05/21/18 21:06 Levemir Vial SQ 30 unit HS KARLI Administration Melatonin 5 mg 05/15/18 22:00 Melatonin PO HS PRN INSOMNIA Nicotine 21 mg 05/16/18 10:00 05/22/18 09:59 Nicoderm Patch - TD Not Given DAILY KARLI Nicotine Polacrilex 4 mg 05/15/18 22:21 05/22/18 11:44 Nicorette Gum - BC 4 mg Q2H PRN Administration NICOTINE REPLACEMENT RX Multivit/Folic Acid/Iron 1 tab 05/16/18 10:00 05/22/18 09:59 Vitamins ([facility]) - PO 1 tab DAILY KARLI Administration Pseudoephedrine/Triprolidine 1 combo 05/15/18 22:21 Actifed - PO TID PRN NASAL CONGESTION Quetiapine Fumarate 100 mg 05/17/18 22:00 05/21/18 21:06 Seroquel - PO 100 mg HS KARLI Administration Sitagliptin Phosphate 50 mg 05/19/18 07:00 05/22/18 07:40 Januvia - PO Not Given DAILY@0700 KARLI Thiamine HCl 100 mg 05/16/18 22:00 05/21/18 21:06 Vitamin B1 - PO 100 mg HS KARLI Administration Trazodone HCl 50 mg 05/17/18 22:00 05/21/18 21:06 Desyrel - PO 50 mg HS KARLI Administration Current Side Effect: No Lab tests ordered: Yes Lab tests reviewed: Yes Provider note:: Patient has completed this program today. She has partially met her treatment goals and will continue to address her issues in outpatient at [facility]. Told investigative writer that from her short participation in this program, she has learned that she needs to keep the focus on herself. She responded well to Seroquel 100 mg po HS and Trazadone 50 mg po HS. Claims she does not need scripts for her medications since she has enough supply till she sees her mental health provider. She is stable for discharge Total face to face time:: 35 Mental Status Exam - Mental Status Exam Alert and Oriented to: Time, Place, Person Cognitive Function: Fair Patient Appearance: Well Groomed Mood: Hopeful, Euthymic Affect: Appropriate Patient Behavior: Cooperative Speech Pattern: Clear Voice Loudness: Normal Thought Process: Intact, Goal Oriented Thought Disorder: Not Present Hallucinations: Denies Suicidal Ideation: Denies Homicidal Ideation: Denies Insight/Judgement: Fair Sleep: Fair Appetite: Good Muscle strength/Tone: Normal Gait/Station: Normal Psychiatric Treatment Plan - Problem List (1) Alcohol dependence Current Visit: Yes (2) Cocaine dependence Current Visit: Yes (3) Cigarette nicotine dependence Current Visit: Yes Qualifiers: Substance use status: uncomplicated Qualified Code(s): F17.210 - Nicotine dependence, cigarettes, uncomplicated Initial treatment plan: Patient is discharged today and refered to [facility] for outpatient treatment
[2018-05-22] MEDS ORDERED: ALBUTEROL SO4 2.5/IPRATROPIUM 0.5 INH SOL 3 ML VIAL.NEB. NEB PRN (19:59)
== END 2018-05-22 14:30 | disposition home or self-care (01) | DRG 772 ==
LOC: YASAS 17:11 → Y3W 22:51
PROVIDERS: ADMIT Psychiatry & Neurology Psychiatry; ATTEND Psychiatry & Neurology Psychiatry
PROC: HZ42ZZZ Group Counseling for Substance Abuse Treatment, Cognitive-Behavioral (ICD-10-PCS; principal; 2018-05-15)
DX: F10.20 Alcohol dependence, uncomplicated (principal); F14.20 Cocaine dependence, uncomplicated; F17.210 Nicotine dependence, cigarettes, uncomplicated; F19.24 Other psychoactive substance dependence with psychoactive substance-induced mood disorder; F39 Unspecified mood [affective] disorder; I10 Essential (primary) hypertension; E11.9 Type 2 diabetes mellitus without complications; J45.909 Unspecified asthma, uncomplicated; K21.9 Gastro-esophageal reflux disease without esophagitis; G47.00 Insomnia, unspecified; Z91.013 Allergy to seafood; Z88.1 Allergy status to other antibiotic agents; Z79.4 Long term (current) use of insulin
CPT/HCPCS: 36415; 80053; 81003; 81015; 82962; 85027; 86593; 87086; 87186; 93005; 93010

== ENCOUNTER 2019-03-17 09:45 | Inpatient (IN) | payer OTHER ==
[2019-03-17 11:55] VITALS: BMI 21.9
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
[2019-03-17] MEDS ORDERED: MAGNESIUM HYDROX 2400MG/30ML ORAL SUSPENSION 30 ML CUP PO PRN (12:57)
[2019-03-17] MEDS ORDERED: MELATONIN 5 MG TABLETS PO PRN (12:57)
[2019-03-17] MEDS ORDERED: chlordiazePOXIDE HCL 25 MG CAPSULE PO PRN (12:57)
[2019-03-17] MEDS ORDERED: MENTHOL/PHENOL 1 EACH UD MM PRN (12:57)
[2019-03-17] MEDS ORDERED: MAG HYDROX/AL HYDROX/SIMETH 30 ML UNIT-DOSE CUP PO PRN (12:57)
[2019-03-17] MEDS ORDERED: METHOCARBAMOL 500 MG TABLET PO PRN (12:57)
[2019-03-17] MEDS ORDERED: hydrOXYzine PAMOATE 25 MG CAPSULE (FP) PO PRN (12:57)
[2019-03-17] MEDS ORDERED: ACETAMINOPHEN 325 MG TABLET (FP) PO PRN (12:57)
[2019-03-17] MEDS ORDERED: IBUPROFEN 400 MG TABLET (FP) PO PRN (12:57)
[2019-03-17] MEDS ORDERED: MAGNESIUM CITRATE 300 ML BOTTLE PO PRN (12:57)
[2019-03-17] MEDS ORDERED: ALBUTEROL SO4 2 MG TABLET PO PRN (13:00)
[2019-03-17] MEDS ORDERED: sitaGLIPtin PHOSPHATE 100 MG TABLET (FP) PO SCH (13:00)
[2019-03-17] MEDS ORDERED: chlordiazePOXIDE HCL 25 MG CAPSULE PO ONE (13:45)
[2019-03-17] MEDS ORDERED: ALBUTEROL SO4 8 GM HFA INHALER IH PRN (13:47)
[2019-03-17] MEDS: sitaGLIPtin PHOSPHATE 100 MG TABLET (FP) PO SCH (17:11)
[2019-03-17] MEDS: chlordiazePOXIDE HCL 25 MG CAPSULE PO SCH ×2 (17:13→22:54)
[2019-03-17] MEDS ORDERED: INSULIN SLIDING SCALE (NOVOLOG) 1 VIAL SQ SCH (17:15)
[2019-03-17] MEDS ORDERED: INSULIN LISPRO 20 UNIT SCJ SCH (17:30)
[2019-03-17] MEDS ORDERED: INSULIN (NOVOLOG) ASPART 100 UNITS/ML 10ML VIAL SQ SCH (17:45)
--- NOTE | 2019-03-17 21:55 | PN ---
S Progress Note Note: standing tid insulin 20 units -dc for low blood sugar client placed on sliding scale and will cont to monitor and adjust as needed Laboratory Tests 03/17/19 03/17/19 17:01 20:00 POC Glucometer 585 161 now 74 mg /dl . as per rn client was given snacks with bgm of 161 and bs cont to drop. will hold levemir tonight. Vital Signs Temperature 99.9 F H 03/17/19 17:31 Pulse Rate 102 H 03/17/19 17:31 Respiratory Rate 20 03/17/19 17:31 Blood Pressure 115/63 03/17/19 17:31 O2 Sat by Pulse Oximetry (%)
[2019-03-17] MEDS ORDERED: PATIENT'S OWN MEDICATION (NON-FORMULARY) (Insulin Glargine,Hum.Rec.Anlog [Basaglar Kwikpen SQ SCH (22:00)
[2019-03-17] MEDS: INSULIN (LEVEMIR) 100 UNITS/ML UNITS SQ SCH (22:54)
[2019-03-17] MEDS: THIAMINE HCL 100 MG TABLET (FP) PO SCH (22:54)
[2019-03-17] MEDS: ATORVASTATIN CA 20 MG TABLET (FP) PO SCH (22:54)
[2019-03-18] MEDS: chlordiazePOXIDE HCL 25 MG CAPSULE PO SCH ×4 (06:51→22:12)
[2019-03-18] MEDS ORDERED: INSULIN (NOVOLOG) ASPART 100 UNITS/ML 10ML VIAL SQ SCH ×2 (07:00→17:30)
[2019-03-18] MEDS: INSULIN SLIDING SCALE (NOVOLOG) 1 VIAL SQ SCH ×3 (08:23→17:40)
[2019-03-18] MEDS: sitaGLIPtin PHOSPHATE 100 MG TABLET (FP) PO SCH (08:23)
[2019-03-18] MEDS: ENALAPRIL MALEATE 10 MG TABLET (FP) PO SCH (10:48)
[2019-03-18] MEDS: PRENATAL VITAMINS W/ FOLIC ACID TABLET (FP) PO SCH (10:48)
[2019-03-18] MEDS: PANTOPRAZOLE 40 MG TABLET (FP) PO SCH (10:48)
[2019-03-18 10:53] LABS: HEMATOCRIT 32.9 % (32.4-45.2); HEMOGLOBIN 10.8 GM/dL (10.7-15.3); MCH 27.9 pg (25.7-33.7); MCHC 32.8 g/dl (32.0-36.0); MEAN PLT VOLUME 9.2 fl (7.5-11.1); PLATELET COUNT 293 K/MM3 (134-434); RBC 3.87 M/mm3 (3.60-5.2); RDW 14.4 % (11.6-15.6); WHITE BLOOD COUNT 7.4 K/mm3 (4.0-10.0)
[2019-03-18 11:43] LABS: ALBUMIN 2.9 g/dl (3.4-5.0); ALK PHOS 139 U/L (45-117); ANION GAP 6 MMOL/L (8-16); BILIRUBIN,TOTAL 0.1 mg/dL (0.2-1); BLOOD UREA NITROGEN 31 mg/dL (7-18); CALCIUM 8.9 mg/dL (8.5-10.1); CHLORIDE 101 mmol/L (98-107); CO2 26 mmol/L (21-32); CREATININE 1.4 mg/dL (0.55-1.3); GLUCOSE,RANDOM 253 mg/dL (74-106); POTASSIUM 4.7 mmol/L (3.5-5.1); SGOT/AST 12 U/L (15-37); SGPT/ALT 16 U/L (13-61); SODIUM 133 mmol/L (136-145); TOT PROT 6.8 g/dl (6.4-8.2)
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
[2019-03-18] MEDS: BISMUTH SUBSALICYLATE 524 MG/30 ML UD PO PRN (16:57)
[2019-03-18] MEDS ORDERED: INSULIN SLIDING SCALE (NOVOLOG) 1 VIAL SQ ONE (17:08)
[2019-03-18] MEDS ORDERED: ALBUTEROL SO4 8 GM HFA INHALER IH PRN (17:08)
--- NOTE | 2019-03-18 17:13 | PN ---
S CIWA - CIWA Score Nausea/Vomitin-Mild Nausea/No Vomiting Muscle Tremors: 3 Anxiety: 3 Agitation: 3 Paroxysmal Sweats: 3 Orientation: 0-Oriented Tacttile Disturbances: 0-None Auditory Disturbances: 0-None Visual Disturbances: 0-None Headache: 0-None Present CIWA-Ar Total Score: 13 S Progress Note (SOAP) Subjective: Agitated, sweating, chills Objective: 03/18/19 17:09 Last Vital Signs Temp Pulse Resp BP Pulse Ox 98.1 F 86 18 102/52 L 03/18/19 14:14 03/18/19 14:14 03/18/19 14:14 03/18/19 14:14 Laboratory Tests 03/17/19 03/17/19 03/17/19 12:26 17:01 20:00 WBC RBC Hgb Hct MCV MCH MCHC RDW Plt Count MPV Sodium Potassium Chloride Carbon Dioxide Anion Gap BUN Creatinine Creat Clearance w eGFR POC Glucometer 585 161 Random Glucose Calcium Total Bilirubin AST ALT Alkaline Phosphatase Total Protein Albumin POC Urine HCG, Qual Negative RPR Titer 03/17/19 03/17/19 03/18/19 21:39 22:46 02:05 WBC RBC Hgb Hct MCV MCH MCHC RDW Plt Count MPV Sodium Potassium Chloride Carbon Dioxide Anion Gap BUN Creatinine Creat Clearance w eGFR POC Glucometer 74 165 236 Random Glucose Calcium Total Bilirubin AST ALT Alkaline Phosphatase Total Protein Albumin POC Urine HCG, Qual RPR Titer 03/18/19 03/18/19 03/18/19 06:24 07:50 07:50 WBC 7.4 RBC 3.87 Hgb 10.8 Hct 32.9 MCV 85.0 MCH 27.9 MCHC 32.8 RDW 14.4 Plt Count 293 D MPV 9.2 Sodium 133 L Potassium 4.7 Chloride 101 Carbon Dioxide 26 Anion Gap 6 L BUN 31 H Creatinine 1.4 H Creat Clearance w eGFR 38.10 POC Glucometer 254 Random Glucose 253 H Calcium 8.9 Total Bilirubin 0.1 L AST 12 L ALT 16 Alkaline Phosphatase 139 H Total Protein 6.8 Albumin 2.9 L POC Urine HCG, Qual RPR Titer 03/18/19 03/18/19 07:50 16:53 WBC RBC Hgb Hct MCV MCH MCHC RDW Plt Count MPV Sodium Potassium Chloride Carbon Dioxide Anion Gap BUN Creatinine Creat Clearance w eGFR POC Glucometer 413 Random Glucose Calcium Total Bilirubin AST ALT Alkaline Phosphatase Total Protein Albumin POC Urine HCG, Qual RPR Titer Nonreactive Labs reviewed: RADHA, hyperglycemia Assessment: 03/18/19 17:10 Withdrawal symptoms Noted with RADHA and hyperglycemia Plan: Continue detox RADHA: encouraged PO water intake Repeat BMP in AM Hyperglycemia secondary to DMT2: continue present regimen Hold levemir if FS < 130 mg/dl at bedtime
[2019-03-18] MEDS: ATORVASTATIN CA 20 MG TABLET (FP) PO SCH (22:12)
[2019-03-18] MEDS: THIAMINE HCL 100 MG TABLET (FP) PO SCH (22:12)
[2019-03-18] MEDS: INSULIN (LEVEMIR) 100 UNITS/ML UNITS SQ SCH (22:14)
[2019-03-18] MEDS: NICOTINE POLACRILEX 4 MG GUM BUC PRN (22:50)
[2019-03-19] MEDS: chlordiazePOXIDE HCL 25 MG CAPSULE PO SCH ×2 (07:10→10:12)
[2019-03-19] MEDS: sitaGLIPtin PHOSPHATE 100 MG TABLET (FP) PO SCH (07:10)
[2019-03-19] MEDS ORDERED: INSULIN SLIDING SCALE (NOVOLOG) 1 VIAL SQ ONE (07:23)
[2019-03-19] MEDS: NICOTINE POLACRILEX 4 MG GUM BUC PRN ×2 (07:45→11:12)
[2019-03-19] MEDS: INSULIN SLIDING SCALE (NOVOLOG) 1 VIAL SQ SCH ×3 (07:46→16:59)
[2019-03-19] MEDS: PRENATAL VITAMINS W/ FOLIC ACID TABLET (FP) PO SCH (10:11)
[2019-03-19] MEDS: PANTOPRAZOLE 40 MG TABLET (FP) PO SCH (10:11)
[2019-03-19] MEDS: ENALAPRIL MALEATE 10 MG TABLET (FP) PO SCH (10:12)
--- NOTE | 2019-03-19 11:59 | PN ---
S CIWA - CIWA Score Nausea/Vomitin-No Nausea/No Vomiting Muscle Tremors: 3 Anxiety: 2 Agitation: 3 Paroxysmal Sweats: 2 Orientation: 0-Oriented Tacttile Disturbances: 0-None Auditory Disturbances: 0-None Visual Disturbances: 0-None Headache: 0-None Present CIWA-Ar Total Score: 10 S Progress Note (SOAP) Subjective: sweats shakes interrupted sleep body aches Objective: 03/19/19 12:01 Vital Signs Temperature 97.7 F 03/19/19 09:30 Pulse Rate 98 H 03/19/19 09:30 Respiratory Rate 18 03/19/19 09:30 Blood Pressure 104/60 03/19/19 09:30 O2 Sat by Pulse Oximetry (%) Laboratory Tests 03/17/19 03/17/19 03/17/19 12:26 13:05 17:01 WBC RBC Hgb Hct MCV MCH MCHC RDW Plt Count MPV Sodium Potassium Chloride Carbon Dioxide Anion Gap BUN Creatinine Creat Clearance w eGFR POC Glucometer 451 585 Random Glucose Calcium Total Bilirubin AST ALT Alkaline Phosphatase Total Protein Albumin POC Urine HCG, Qual Negative RPR Titer 03/17/19 03/17/19 03/17/19 20:00 21:39 22:46 WBC RBC Hgb Hct MCV MCH MCHC RDW Plt Count MPV Sodium Potassium Chloride Carbon Dioxide Anion Gap BUN Creatinine Creat Clearance w eGFR POC Glucometer 161 74 165 Random Glucose Calcium Total Bilirubin AST ALT Alkaline Phosphatase Total Protein Albumin POC Urine HCG, Qual RPR Titer 03/18/19 03/18/19 03/18/19 02:05 06:24 07:50 WBC 7.4 RBC 3.87 Hgb 10.8 Hct 32.9 MCV 85.0 MCH 27.9 MCHC 32.8 RDW 14.4 Plt Count 293 D MPV 9.2 Sodium Potassium Chloride Carbon Dioxide Anion Gap BUN Creatinine Creat Clearance w eGFR POC Glucometer 236 254 Random Glucose Calcium Total Bilirubin AST ALT Alkaline Phosphatase Total Protein Albumin POC Urine HCG, Qual RPR Titer 03/18/19 03/18/19 03/18/19 07:50 07:50 16:53 WBC RBC Hgb Hct MCV MCH MCHC RDW Plt Count MPV Sodium 133 L Potassium 4.7 Chloride 101 Carbon Dioxide 26 Anion Gap 6 L BUN 31 H Creatinine 1.4 H Creat Clearance w eGFR 38.10 POC Glucometer 413 Random Glucose 253 H Calcium 8.9 Total Bilirubin 0.1 L AST 12 L ALT 16 Alkaline Phosphatase 139 H Total Protein 6.8 Albumin 2.9 L POC Urine HCG, Qual RPR Titer Nonreactive 03/18/19 03/19/19 03/19/19 21:36 06:03 11:11 WBC RBC Hgb Hct MCV MCH MCHC RDW Plt Count MPV Sodium Potassium Chloride Carbon Dioxide Anion Gap BUN Creatinine Creat Clearance w eGFR POC Glucometer 204 304 193 Random Glucose Calcium Total Bilirubin AST ALT Alkaline Phosphatase Total Protein Albumin POC Urine HCG, Qual RPR Titer aaox3 ambulating no acute distress Assessment: 03/19/19 12:01 withdrawal sx Plan: continue detox increase fluids
[2019-03-19 12:10] LABS: ANION GAP 8 MMOL/L (8-16); BLOOD UREA NITROGEN 36 mg/dL (7-18); CHLORIDE 107 mmol/L (98-107); CO2 29 mmol/L (21-32); CREATININE 1.7 mg/dL (0.55-1.3); GLUCOSE,RANDOM 152 mg/dL (74-106); POTASSIUM 4.9 mmol/L (3.5-5.1); SODIUM 144 mmol/L (136-145)
[2019-03-19] MEDS: chlordiazePOXIDE HCL 10 MG CAPSULE PO SCH ×2 (16:55→22:47)
[2019-03-19] MEDS ORDERED: chlordiazePOXIDE HCL 10 MG CAPSULE PO PRN (17:00)
[2019-03-19] MEDS ORDERED: INSULIN (NOVOLOG) ASPART 100 UNITS/ML 10ML VIAL SQ ONE (19:37)
[2019-03-19] MEDS: INSULIN (LEVEMIR) 100 UNITS/ML UNITS SQ SCH (21:44)
[2019-03-19] MEDS: ATORVASTATIN CA 20 MG TABLET (FP) PO SCH (21:46)
[2019-03-19] MEDS: THIAMINE HCL 100 MG TABLET (FP) PO SCH (21:46)
[2019-03-19] MEDS ORDERED: QUEtiapine FUMARATE 300 MG TABLET PO SCH (22:00)
[2019-03-20] MEDS: chlordiazePOXIDE HCL 10 MG CAPSULE PO SCH ×2 (07:38→12:30)
[2019-03-20] MEDS: INSULIN SLIDING SCALE (NOVOLOG) 1 VIAL SQ SCH ×3 (07:39→17:30)
[2019-03-20] MEDS ORDERED: INSULIN SLIDING SCALE (NOVOLOG) 1 VIAL SQ ONE ×3 (07:45→22:46)
--- NOTE | 2019-03-20 11:10 | PN ---
S CIWA - CIWA Score Nausea/Vomitin-No Nausea/No Vomiting Muscle Tremors: 1-None Visible, but [place] Anxiety: 0-No Anxiety, at Ease Agitation: 0-Normal Activity Paroxysmal Sweats: 1-Minimal Palms Moist Orientation: 0-Oriented Tacttile Disturbances: 0-None Auditory Disturbances: 0-None Visual Disturbances: 0-None Headache: 0-None Present CIWA-Ar Total Score: 2 BHS Progress Note (SOAP) Subjective: groggy sleepy but abusable Objective: 03/20/19 11:10 Vital Signs Temperature 97.0 F L 03/20/19 09:09 Pulse Rate 106 H 03/20/19 09:09 Respiratory Rate 16 03/20/19 09:09 Blood Pressure 144/71 03/20/19 09:09 O2 Sat by Pulse Oximetry (%) aaox3 lying in bed no acute distress Assessment: 03/20/19 11:12 mild withdrawal sx Plan: psych consultation ordered to reassess for seroquel dose librium d/c pt can get prn librium if needed d/c in am
--- NOTE | 2019-03-20 11:12 | PN ---
Psychiatric Progress Note Vital Signs: Vital Signs Period Temp Pulse Resp BP Sys/Rock Pulse Ox Last 24 Hr 97.0 F-98.6 F 91-106 16-20 102-157/57-79 Date of Session: 03/20/29 HPI: This is day two of detox. Patient admitted to for alcohol and cocaine dependence. ROS: Patient presents as fatigue, somnolent, and sedated. Difficulty to awake but is oriented X3. Current Medications: Active Medications Generic Name Dose Route Start Last Admin Trade Name Freq PRN Reason Stop Dose Admin Acetaminophen 650 mg 03/17/19 12:57 Tylenol - PO Q6H PRN PAIN LEVEL 4 - 6 Al Hydroxide/Mg Hydroxide 30 ml 03/17/19 12:57 Mylanta Oral Suspension - PO Q6H PRN DYSPEPSIA Albuterol Sulfate 2 puff 03/18/19 17:08 Ventolin Hfa Inhaler - IH Q4H PRN SHORTNESS OF BREATH Atorvastatin Calcium 20 mg 03/17/19 22:00 03/19/19 21:46 Lipitor - PO 20 mg HS KARLI Administration Bismuth Subsalicylate 524 mg 03/17/19 12:57 03/18/19 16:57 Pepto-Bismol - PO 524 mg Q1H PRN Administration DIARRHEA Chlordiazepoxide HCl 10 mg 03/19/19 17:00 Librium - PO 03/20/19 17:00 Q4H PRN WITHDRAWAL(CONT SUBST) Enalapril Maleate 40 mg 03/18/19 10:00 03/19/19 10:12 Vasotec - PO Not Given DAILY KARLI Eucalyptus/Menthol/Phenol/Sorbitol 1 each 03/17/19 12:57 Cepastat Lozenge - MM 03/23/19 12:57 Q4H PRN SORE THROAT Hydroxyzine Pamoate 25 mg 03/17/19 12:57 Vistaril - PO 03/23/19 12:57 Q6H PRN For Anxiety Ibuprofen 400 mg 03/17/19 12:57 Motrin - PO Q6H PRN PAIN LEVEL 1 - 3 Insulin Aspart 1 vial 03/19/19 06:35 03/20/19 07:39 Novolog Vial Sliding Scale - SQ 14 units TIDAC KARLI Administration Protocol Insulin Detemir 30 units 03/17/19 22:00 03/19/19 21:44 Levemir Vial SQ Not Given HS KARLI Magnesium Citrate 300 ml 03/17/19 12:57 Citroma - PO Q48H PRN CONSTIPATION Magnesium Hydroxide 30 ml 03/17/19 12:57 Milk Of Magnesia - PO PRN PRN CONSTIPATION Melatonin 5 mg 03/17/19 12:57 Melatonin PO HS PRN INSOMNIA Methocarbamol 500 mg 03/17/19 12:57 Robaxin - PO 03/23/19 12:57 Q6H PRN MUSCLE SPASMS Nicotine Polacrilex 4 mg 03/17/19 12:57 03/19/19 11:12 Nicorette Gum - BUC 4 mg Q2H PRN Administration NICOTINE REPLACEMENT RX Pantoprazole Sodium 40 mg 03/18/19 10:00 03/19/19 10:11 Protonix - PO 40 mg DAILY KARLI Administration Multivit/Folic Acid/Iron 1 tab 03/18/19 10:00 03/19/19 10:11 Vitamins ([facility]) - PO 1 tab DAILY KARLI Administration Quetiapine Fumarate 300 mg 03/19/19 22:00 03/19/19 21:46 Seroquel - PO 300 mg HS KARLI Administration Sitagliptin Phosphate 100 mg 03/17/19 18:00 03/19/19 07:10 Januvia - PO Not Given DAILY@0700 KARLI Thiamine HCl 100 mg 03/17/19 22:00 03/19/19 21:46 Vitamin B1 - PO 100 mg HS KARLI Administration Medication(s) Change(s): Yes. Current Side Effect: No Lab tests ordered: No Lab tests reviewed: Yes Provider note:: Oven Tender asked to reasses patient after presenting sedated this morning. Upon approach, patient was observed laying in bed. Patient presents as somnolent, fatigue, sedated and difficult to awaken. Librium held this morning due to oversedation. Patient seen by Dr. Perdomo on 03/19/19. Dr. Perdomo's note read and appreciated. Will d/c seroquel 300mg HS. Nursing staff informed. Total face to face time:: 5 Mental Status Exam - Mental Status Exam Alert and Oriented to: Time, Place, Person Cognitive Function: Fair Patient Appearance: Unkempt Mood: Withdrawn Affect: Mood Congruent Patient Behavior: Sedated, Fatigued, Asleep (Needing to be awaken several times. ) Speech Pattern: Slurred Voice Loudness: Moderately Soft/Quiet Thought Process: Goal Oriented Thought Disorder: Not Present Hallucinations: Denies Suicidal Ideation: Denies Homicidal Ideation: Denies Insight/Judgement: Poor Sleep: Well Appetite: Fair Muscle strength/Tone: Normal Gait/Station: Other (Did not observe patient's gait.) Psychiatric Treatment Plan - Problem List (1) Alcohol dependence with uncomplicated withdrawal Current Visit: Yes (2) Cocaine dependence Current Visit: Yes (3) Substance induced mood disorder Current Visit: Yes (4) Substance-induced sleep disorder Current Visit: Yes (5) Mood disorder Current Visit: No
[2019-03-20] MEDS: sitaGLIPtin PHOSPHATE 100 MG TABLET (FP) PO SCH (12:31)
[2019-03-20] MEDS: PRENATAL VITAMINS W/ FOLIC ACID TABLET (FP) PO SCH (15:59)
[2019-03-20] MEDS: ENALAPRIL MALEATE 10 MG TABLET (FP) PO SCH (15:59)
[2019-03-20] MEDS: PANTOPRAZOLE 40 MG TABLET (FP) PO SCH (15:59)
[2019-03-20] MEDS ORDERED: chlordiazePOXIDE HCL 10 MG CAPSULE PO SCH (17:00)
[2019-03-20] MEDS: THIAMINE HCL 100 MG TABLET (FP) PO SCH (22:04)
[2019-03-20] MEDS: ATORVASTATIN CA 20 MG TABLET (FP) PO SCH (22:04)
[2019-03-20] MEDS: BISMUTH SUBSALICYLATE 524 MG/30 ML UD PO PRN (22:05)
[2019-03-20 22:07] VITALS: BP 150/69; PULSE 95; TEMP 97.4
[2019-03-20] MEDS: INSULIN (LEVEMIR) 100 UNITS/ML UNITS SQ SCH (22:47)
[2019-03-21] MEDS: sitaGLIPtin PHOSPHATE 100 MG TABLET (FP) PO SCH (07:10)
[2019-03-21] MEDS: INSULIN SLIDING SCALE (NOVOLOG) 1 VIAL SQ SCH (07:10)
--- NOTE | 2019-03-21 08:50 | DS ---
[facility] Detox Discharge Summary Admission Date: 03/17/19 Discharge Date: 03/21/19 - History Present History: Alcohol Dependence, Cocaine Dependence - Physical Exam Results Vital Signs: Vital Signs Temperature 97.4 F L 03/20/19 22:06 Pulse Rate 95 H 03/20/19 22:06 Respiratory Rate 18 03/21/19 03:30 Blood Pressure 150/69 03/20/19 22:06 O2 Sat by Pulse Oximetry (%) - Treatment Hospital Course: Detox Protocol Followed, Detoxed Safely, Responded well, Discharged Condition Good, Rehab Referral Accepted - Medication Discharge Medications: Ambulatory Orders Albuterol Sulfate [Ventolin -] 2 mg PO Q4H PRN 11/08/12 Esomeprazole Mag Trihydrate [Nexium] 40 mg PO DAILY 11/08/12 Quetiapine Fumarate [Seroquel -] 300 mg PO HS 11/08/12 Sitagliptin Phosphate [Januvia] 100 mg PO DAILY 11/08/12 Atorvastatin Ca [Lipitor] 20 mg PO HS 02/18/17 Enalapril Maleate [Vasotec -] 40 mg PO DAILY 05/15/18 Insulin Glargine,Hum.rec.anlog [Basaglar Kwikpen U-100] 30 units SQ HS 03/17/19 Insulin Lispro [Admelog Solostar] 20 units TIDCM 03/17/19 - Diagnosis (1) Alcohol dependence with uncomplicated withdrawal Status: Chronic (2) Cocaine dependence Status: Chronic (3) Insomnia Status: Chronic (4) Substance induced mood disorder Status: Acute (5) Substance induced mood disorder Status: Acute (6) Substance-induced sleep disorder Status: Acute (7) Asthma Status: Chronic (8) Dyslipidemia Status: Chronic (9) Essential hypertension Status: Chronic (10) Gastroesophageal reflux disease Status: Chronic (11) H/O cardiac murmur Status: Chronic (12) IDDM (insulin dependent diabetes mellitus) Status: Chronic (13) Mood disorder Status: Chronic (14) Nicotine dependence Status: Chronic Qualifiers: Nicotine product type: cigarettes Substance use status: uncomplicated Qualified Code(s): F17.210 - Nicotine dependence, cigarettes, uncomplicated (15) PPD positive Status: Chronic (16) Bipolar disorder Status: Ruled-out - AMA Did Patient Leave Against Medical Advice: No (referred to [facility] inpatient rehab)
== END 2019-03-21 07:27 | disposition home or self-care (01) | DRG 774 ==
LOC: YASAS 09:45 → Y6N 13:27
PROVIDERS: ADMIT Surgery; ATTEND Surgery
PROC: HZ2ZZZZ Detoxification Services for Substance Abuse Treatment (ICD-10-PCS; principal; 2019-03-17)
DX: F10.230 Alcohol dependence with withdrawal, uncomplicated (principal); F14.20 Cocaine dependence, uncomplicated; F17.201 Nicotine dependence, unspecified, in remission; F19.24 Other psychoactive substance dependence with psychoactive substance-induced mood disorder; F19.282 Other psychoactive substance dependence with psychoactive substance-induced sleep disorder; F39 Unspecified mood [affective] disorder; F31.9 Bipolar disorder, unspecified; I10 Essential (primary) hypertension; E78.5 Hyperlipidemia, unspecified; G47.00 Insomnia, unspecified; J45.909 Unspecified asthma, uncomplicated; I49.9 Cardiac arrhythmia, unspecified; K21.9 Gastro-esophageal reflux disease without esophagitis; R01.1 Cardiac murmur, unspecified; E11.65 Type 2 diabetes mellitus with hyperglycemia; R76.11 Nonspecific reaction to tuberculin skin test without active tuberculosis; N17.9 Acute kidney failure, unspecified; Z79.4 Long term (current) use of insulin; Z88.1 Allergy status to other antibiotic agents; Z91.013 Allergy to seafood
CPT/HCPCS: 36415; 71046-TC-FY; 80048; 80053; 81025; 82962; 85027; 86593